=== PATIENT | male | born 1965 | race Caucasian/White ===

== ENCOUNTER 2016-09-22 21:53 | Emergency (ER) | END 2016-09-22 23:50 | disposition home or self-care (01) | DX: T78.09XA Anaphylactic reaction due to other food products, initial encounter (principal); R40.2142 Coma scale, eyes open, spontaneous, at arrival to emergency department; R40.2252 Coma scale, best verbal response, oriented, at arrival to emergency department; R40.2362 Coma scale, best motor response, obeys commands, at arrival to emergency department | CPT/HCPCS: 93005; 94644; 96372; 96374; 96375; J0171; J1200; J2930; J7030; Z7502; Z7610 ==

== ENCOUNTER 2018-03-06 00:14 | Emergency (ER) | END 2018-03-06 04:02 | disposition short-term general hospital (02) ==